=== PATIENT | female | born 1955 | race Caucasian/White ===

== ENCOUNTER 2020-12-22 20:00 | Emergency (ER) | payer OTHER, MEDICARE ==
[~2020-12-22] VITALS: Ht 160 cm; Wt 75.0 kg
[2020-12-22] MEDS ORDERED: LOPID600 MG PO (20:57)
[2020-12-22] MEDS ORDERED: NORCO 325 MG-7.1 TA1 PO (20:58)
[2020-12-22] MEDS ORDERED: LEVOTHYROXIN0.075 MG PO (20:58)
[2020-12-22] MEDS ORDERED: MELOXICAM15 MG PO (20:58)
[2020-12-22] MEDS ORDERED: SUCRALFATE1 G1 PO (20:59)
[2020-12-22] MEDS ORDERED: METOPROLOL SUCC50 M1 PO (20:59)
[2020-12-22] MEDS ORDERED: ADULT ASPIRIN R81 MG PO (21:02)
[2020-12-22] MEDS ORDERED: VITAMIN C500 M7 PO (21:02)
[2020-12-22] MEDS ORDERED: NORVASC 10MG10 MG PO (21:05)
[2020-12-22] MEDS ORDERED: PRILOSEC 20MG20 MG PO (21:05)
[2020-12-22 22:06] VITALS: BP 164/69
== END 2020-12-22 22:06 | disposition home or self-care (01) ==
LOC: ED 20:00
DX: S01.111A Laceration without foreign body of right eyelid and periocular area, initial encounter (principal); M25.511 Pain in right shoulder; I10 Essential (primary) hypertension; J44.9 Chronic obstructive pulmonary disease, unspecified; K21.9 Gastro-esophageal reflux disease without esophagitis; E03.9 Hypothyroidism, unspecified; Z79.890 Hormone replacement therapy; Z79.899 Other long term (current) drug therapy; W18.30XA Fall on same level, unspecified, initial encounter